=== PATIENT | male | born 1990 | race African-American/Black ===

== ENCOUNTER 2017-08-25 10:56 | Emergency (ER) | payer SELFPAY ==
[~2017-08-25] VITALS: Ht 165.1 cm; Wt 56.8 kg
[2017-08-25 11:30] LABS: BASOPHIL COUNT 0.1 K/uL (0-0.1); EOSINOPHIL (%) 0.8 % (0-5); EOSINOPHIL COUNT 0.1 K/uL (0-0.3); HEMATOCRIT 41.8 % (38.0-50.0); HEMOGLOBIN 13.9 G/DL (12.5-16.6); IMMATURE GRANULOCYTE (%) 0.3 % (0.0-0.7); LYMPHOCYTE (%) 49.1 % (15-42); LYMPHOCYTE COUNT 3.8 K/uL (1.0-2.8); MCHC 33.3 G/DL (30.0-36.0); MCV 84.3 FL (86-99); MONOCYTE (%) 8.4 % (3-12); MONOCYTE COUNT 0.6 K/uL (0-0.8); NEUTROPHIL (%) 40.4 % (45-76); NEUTROPHIL COUNT 3.1 K/uL (1.8-6.4); PLATELET COUNT 217 K/uL (156-360); RBC DIS.WIDTH-CV 11.9 % (11.8-14.6); RBC DIS.WIDTH-SD 35.8 % (39-53); RED BLOOD COUNT 4.96 M/uL (4.00-5.50); WHITE BLOOD COUNT 7.7 K/uL (4.1-10.2)
[2017-08-25 12:11] LABS: ALBUMIN 4.4 G/DL (3.2-4.8); ALKALINE PHOSPHATASE 67 IU/L (3-129); ALT (GPT) 13 IU/L (3-49); AST (GOT) 16 IU/L (2-34); CHLORIDE 108 MEQ/L (99-109); CREATININE 1.1 MG/DL (0.6-1.3); GFR ESTIMATE (CALCULATED) > 59 mL/min/ (58.99-99999); GLUCOSE 137 mg/dL (70-99); LIPASE 15 U/L (1.0-51.0); POTASSIUM 3.4 MEQ/L (3.7-5.4); SODIUM 141 MEQ/L (136-147); TOTAL BILIRUBIN 0.6 MG/DL (0.0-1.0); TOTAL PROTEIN 7.1 G/DL (6.4-8.3); UREA NITROGEN (BUN) 17 mg/dL (9-23)
[2017-08-25] MEDS ORDERED: PERCOCET 5/31 TABLET PO (12:33)
[2017-08-25 12:55] VITALS: BP 113/68
== END 2017-08-25 12:56 | disposition home or self-care (01) ==
LOC: EME 10:56
PROVIDERS: Emergency Medicine
DX: N20.0 Calculus of kidney (principal); Z87.442 Personal history of urinary calculi; F17.200 Nicotine dependence, unspecified, uncomplicated
CPT/HCPCS: 74176; 80053; 81003; 83690; 85025; 99281; 99284; J1885; J2270; J2405; J7030

== ENCOUNTER 2017-10-09 08:48 | Emergency (ER) | payer SELFPAY ==
[~2017-10-09] VITALS: Ht 165.1 cm; Wt 58.4 kg
[~2017-10-09 08:48] MED LIST: PERCOCET 5/31 TABLET PO
[2017-10-09 10:08] LABS: HEMATOCRIT 43.1 % (38.0-50.0); HEMOGLOBIN 14.2 G/DL (12.5-16.6); MCH 28.3 PG (29.0-34.0); MCHC 32.9 G/DL (30.0-36.0); MCV 85.9 FL (86-99); RED BLOOD COUNT 5.02 M/uL (4.00-5.50); WHITE BLOOD COUNT 9.1 K/uL (4.1-10.2)
[2017-10-09 10:17] LABS: ALBUMIN 4.4 g/dL (3.2-4.8); CHLORIDE 108 mEq/L (99-109); POTASSIUM 4.2 mEq/L (3.7-5.4); SODIUM 139 mEq/L (136-147)
[2017-10-09 10:19] LABS: GLUCOSE 90 mg/dL (70-99); TOTAL PROTEIN 7.7 g/dL (6.4-8.3)
[2017-10-09 10:21] LABS: TOTAL BILIRUBIN 0.6 mg/dL (0.0-1.0)
[2017-10-09 10:23] LABS: ALKALINE PHOSPHATASE 77 IU/L (3-129); CREATININE 1.1 mg/dL (0.6-1.3); GFR ESTIMATE (CALCULATED) > 59 mL/min/ (58.99-99999)
[2017-10-09 10:24] LABS: UREA NITROGEN (BUN) 16 mg/dL (9-23)
[2017-10-09 10:25] LABS: AST (GOT) 26 IU/L (2-34)
[2017-10-09 10:26] LABS: ALT (GPT) 19 IU/L (3-49)
[2017-10-09] MEDS ORDERED: ZOFRAN ODT4 MG PO (11:27)
[2017-10-09] MEDS ORDERED: BENTYL10 MG PO (11:27)
[2017-10-09 11:29] LABS: PLAT.SUFFICIENCY ADEQUATE; PLATELET COUNT 206 K/uL (156-360)
[2017-10-09 11:37] VITALS: BP 120/68
== END 2017-10-09 11:46 | disposition home or self-care (01) ==
LOC: EME 08:48
PROVIDERS: Nurse Practitioner Family
DX: B34.9 Viral infection, unspecified (principal)
CPT/HCPCS: 71046; 80053; 85027; 99281; 99284

== ENCOUNTER 2018-02-10 12:36 | Emergency (ER) | payer OTHER ==
[~2018-02-10] VITALS: Ht 165.1 cm; Wt 57.2 kg
[~2018-02-10 12:36] MED LIST changes: +BENTYL10 MG PO; +ZOFRAN ODT4 MG PO
[2018-02-10 13:30] LABS: BASOPHIL (%) 1.8 % (0-1); BASOPHIL COUNT 0.1 K/uL (0-0.1); EOSINOPHIL (%) 1.8 % (0-5); EOSINOPHIL COUNT 0.1 K/uL (0-0.3); HEMATOCRIT 38.2 % (38.0-50.0); HEMOGLOBIN 12.7 G/DL (12.5-16.6); IMMATURE GRANULOCYTE (%) 0.2 % (0.0-0.7); LYMPHOCYTE (%) 46.1 % (15-42); LYMPHOCYTE COUNT 2.5 K/uL (1.0-2.8); MCH 28.2 PG (29.0-34.0); MCHC 33.2 G/DL (30.0-36.0); MCV 84.9 FL (86-99); MONOCYTE (%) 8.9 % (3-12); MONOCYTE COUNT 0.5 K/uL (0-0.8); NEUTROPHIL (%) 41.2 % (45-76); NEUTROPHIL COUNT 2.3 K/uL (1.8-6.4); PLATELET COUNT 207 K/uL (156-360); RBC DIS.WIDTH-CV 11.9 % (11.8-14.6); RBC DIS.WIDTH-SD 36.5 % (39-53); WHITE BLOOD COUNT 5.5 K/uL (4.1-10.2)
[2018-02-10 13:36] LABS: ALBUMIN 4.4 g/dL (3.2-4.8); CHLORIDE 108 mEq/L (99-109); POTASSIUM 3.8 mEq/L (3.7-5.4); SODIUM 141 mEq/L (136-147)
[2018-02-10 13:39] LABS: GLUCOSE 86 mg/dL (70-99); TOTAL PROTEIN 7.2 g/dL (6.4-8.3)
[2018-02-10 13:41] LABS: TOTAL BILIRUBIN 0.5 mg/dL (0.0-1.0)
[2018-02-10 13:42] LABS: ALKALINE PHOSPHATASE 74 IU/L (3-129); GFR ESTIMATE (CALCULATED) > 59 mL/min/ (58.99-99999)
[2018-02-10 13:43] LABS: UREA NITROGEN (BUN) 13 mg/dL (9-23)
[2018-02-10 13:44] LABS: AST (GOT) 22 IU/L (2-34)
[2018-02-10 13:45] LABS: ALT (GPT) 24 IU/L (3-49)
[2018-02-10 13:46] LABS: LIPASE 23 U/L (1.0-51.0)
[2018-02-10 15:12] LABS: APPEARANCE SL.HAZY ((CLEAR)); BILIRUBIN NEGATIVE; BLOOD NEGATIVE; COLOR YELLOW ((YELLOW)); GLUCOSE (STRIP) NEGATIVE; KETONES NEGATIVE; LEUKOCYTES NEGATIVE; NITRITE NEGATIVE; PROTEIN (STRIP) NEGATIVE; SPECIFIC GRAVITY 1.021 (1.000-1.030)
[2018-02-10 15:26] LABS: BACTERIA RARE /HPF; EPITHELIAL CELLS NONE SEEN /HPF; MUCUS TRACE /LPF; RED BLOOD CELLS 0-5 /HPF (0-5)
[2018-02-10] MEDS ORDERED: CITRATE OF MAG296 ML PO (16:16)
[2018-02-10 16:33] VITALS: BP 104/61
== END 2018-02-10 16:33 | disposition home or self-care (01) ==
LOC: EME 12:36
PROVIDERS: Physician Assistant
DX: R10.9 Unspecified abdominal pain (principal); K59.00 Constipation, unspecified; R05 Cough; Z87.442 Personal history of urinary calculi
CPT/HCPCS: 71046; 74176; 80053; 81003; 83690; 85025; 99281; 99284; J1885

== ENCOUNTER 2018-02-22 21:56 | Emergency (ER) | payer OTHER ==
[~2018-02-22] VITALS: Ht 165.1 cm; Wt 56.7 kg
[~2018-02-22 21:56] MED LIST changes: +CITRATE OF MAG296 ML PO
[2018-02-23] MEDS ORDERED: NAPROSYN500 MG PO (00:59)
[2018-02-23] MEDS ORDERED: VIBRAMYCIN100 MG PO (00:59)
[2018-02-23] MEDS ORDERED: TESSALON PERLE100 MG PO (00:59)
[2018-02-23 01:17] VITALS: BP 114/66
== END 2018-02-23 01:17 | disposition home or self-care (01) ==
LOC: EME 21:56
DX: J18.0 Bronchopneumonia, unspecified organism (principal); F17.200 Nicotine dependence, unspecified, uncomplicated
CPT/HCPCS: 71046; 99281; 99284